=== PATIENT | male | born 1935 | race Caucasian/White ===

== ENCOUNTER 2021-06-21 11:33 | Inpatient (IN) | payer MEDICARE, OTHER ==
[~2021-06-21] VITALS: Ht 170.2 cm; Wt 90.7 kg
--- NOTE | 2021-06-21 19:40 | NUR ---
Patient arrived in the unit via gurney, accompanied by project controls specialist, awake and alert, quite disoriented to place, stuttered and delayed verbal responses. Routine admission care done. Plan of care initiated.
[2021-06-21 20:00] VITALS: BP 159/99
[2021-06-21] MEDS ORDERED: TAMS-3 PO (20:19)
[2021-06-21] MEDS ORDERED: VALS1TAB6 PO (20:19)
[2021-06-21] MEDS ORDERED: POTA20TA29 PO (20:19)
[2021-06-21] MEDS ORDERED: FURO40TA5 PO (20:19)
[2021-06-21] MEDS ORDERED: CLOP75TA15 PO (20:19)
[2021-06-21] MEDS ORDERED: DARO300T PO (20:19)
[2021-06-21] MEDS: REMEDY ESSENTIAL ZINC PASTE 113 GM TOP SCH (21:23)
[2021-06-21] MEDS: TAMSULOSIN HCL 0.4 MG CAP.SR.24H PO SCH (21:23)
[2021-06-22 04:00] VITALS: BP 158/77
--- NOTE | 2021-06-22 07:05 | NUR ---
Shift End Report: Vs stable. No complaint presented all night. Slept well. No significant event reported. Continue care as planned.
[2021-06-22 08:00] VITALS: BP 170/93
[2021-06-22] MEDS: VALSARTAN 160 MG TABLET PO SCH (08:48)
[2021-06-22] MEDS: FUROSEMIDE 40 MG TABLET PO SCH ×2 (08:49→16:13)
[2021-06-22] MEDS: CLOPIDOGREL 75 MG TABLET PO SCH (08:49)
[2021-06-22] MEDS: HYDROCHLOROTHIAZIDE 25 MG TABLET PO SCH (08:49)
[2021-06-22] MEDS: REMEDY ESSENTIAL ZINC PASTE 113 GM TOP SCH ×2 (08:50→20:39)
[2021-06-22] MEDS ORDERED: CIT AC PO SCH (09:00)
[2021-06-22] MEDS ORDERED: POTASSIUM BICARBONATE PO SCH (09:00)
[2021-06-22] MEDS ORDERED: DAROLUTAMIDE 600 MG PO SCH (09:00)
[2021-06-22] MEDS: POTASSIUM CHLORIDE 20 MEQ TAB.PRT.SR PO SCH ×2 (11:15→16:13)
--- NOTE | 2021-06-22 15:00 | NUR ---
Received Pt awake and alert, disoriented to place and time , stuttered and delayed verbal responses having trouble remembering certain things respiration even and unlabored at room air o2 sat 97 % no C/O of pain or acute distress noted Seen and examine by DR Negron with new order to D/C Rooney Cath and monitor for urinary retention offer the urinal Q2 . pt was UP in W/C with PT able tolerated well used the BR with PT will continue to monitor for comfort and safety.
[2021-06-22 15:15] VITALS: BP 159/99
[2021-06-22 15:33] VITALS: BP 159/99
[2021-06-22] MEDS: DAROLUTAMIDE 300 MG PO SCH ×2 (17:03→20:36)
[2021-06-22] MEDS ORDERED: FURO80TA3 PO (17:13)
[2021-06-22 17:17] VITALS: BP 159/87
[2021-06-22] MEDS ORDERED: CEFTRIAXONE 1 G in IV DEXTROSE 5% 50 ML IV SCH (18:00)
--- NOTE | 2021-06-22 18:26 | NUR ---
Pt Rooney cath was removed at 1700 will monitor closely for urinary retention ,he also noted with high blood pressure medicated as per MD ordered BP 159/87 P 117 SPO2 96% .Pt also noted with new order for Rocephin 1 GM Q 24 X5 days for UTI. Pt not having IV access at this time order obtain for a midline insertion
[2021-06-22 20:00] VITALS: BP 157/90
[2021-06-22] MEDS: TAMSULOSIN HCL 0.4 MG CAP.SR.24H PO SCH (20:34)
--- NOTE | 2021-06-22 22:30 | NUR ---
Mid liner Delvin here and Midline insertion done on CATHERINE G# 18, intact and patent. Patient tolerated procedure well. IV antibiotic initiated as ordered. Will monitor s/s of adverse reaction from the drugs.
[2021-06-22] MEDS: CEFTRIAXONE 1 G in IV DEXTROSE 5% 50 ML IV SCH (23:20)
[2021-06-23 04:00] VITALS: BP 142/86
[2021-06-23 08:04] VITALS: BP 142/88
[2021-06-23] MEDS: FUROSEMIDE 40 MG TABLET PO SCH ×2 (08:46→16:54)
[2021-06-23] MEDS: VALSARTAN 160 MG TABLET PO SCH (08:46)
[2021-06-23] MEDS: HYDROCHLOROTHIAZIDE 25 MG TABLET PO SCH (08:46)
[2021-06-23] MEDS: POTASSIUM CHLORIDE 20 MEQ TAB.PRT.SR PO SCH ×2 (08:46→16:54)
[2021-06-23] MEDS: CLOPIDOGREL 75 MG TABLET PO SCH (08:47)
[2021-06-23] MEDS: REMEDY ESSENTIAL ZINC PASTE 113 GM TOP SCH ×2 (08:47→20:32)
[2021-06-23] MEDS: DAROLUTAMIDE 300 MG PO SCH ×2 (08:47→20:25)
--- NOTE | 2021-06-23 13:35 | NUR ---
Received Pt AAO x4 confused at times, able to let needs known. Respirations even and unlabored sat 94% no C/O of pain. CATHERINE G# 18, intact and patent. Continue on IV antibiotic Rocephin 1 GM for UTI as ordered. S/P Rooney cath PT voiding well using urinal and diaper. Will monitor s/s of urinary retention continue to offer urinal Q2 hr .
[2021-06-23 16:19] VITALS: BP 102/51
[2021-06-23] MEDS: TAMSULOSIN HCL 0.4 MG CAP.SR.24H PO SCH (20:24)
[2021-06-23 20:40] VITALS: BP 128/75
[2021-06-23] MEDS: CEFTRIAXONE 1 G in IV DEXTROSE 5% 50 ML IV SCH (22:08)
[2021-06-24 04:25] VITALS: BP 129/72
--- NOTE | 2021-06-24 06:45 | NUR ---
Pt slept intermittently throughout the night. No acute changes noted. All needs attended. Will endorse to next shift.
[2021-06-24 08:00] VITALS: BP 132/88
[2021-06-24] MEDS: VALSARTAN 160 MG TABLET PO SCH (08:09)
[2021-06-24] MEDS: ENSURE ENLIVE (VAN) 240 ML LIQUID PO SCH (08:10)
[2021-06-24] MEDS: POTASSIUM CHLORIDE 20 MEQ TAB.PRT.SR PO SCH ×2 (08:12→16:53)
[2021-06-24] MEDS: CLOPIDOGREL 75 MG TABLET PO SCH (08:12)
[2021-06-24] MEDS: FUROSEMIDE 40 MG TABLET PO SCH ×2 (08:12→16:53)
[2021-06-24] MEDS: HYDROCHLOROTHIAZIDE 25 MG TABLET PO SCH (08:12)
[2021-06-24] MEDS: REMEDY ESSENTIAL ZINC PASTE 113 GM TOP SCH ×2 (08:13→20:49)
[2021-06-24] MEDS: DAROLUTAMIDE 300 MG PO SCH ×2 (08:13→20:48)
--- NOTE | 2021-06-24 09:52 | NUR ---
INDIVIDUALIZED PLAN OF CARE
--- NOTE | 2021-06-24 13:39 | NUR ---
Pt remain AAO x4 with period of confusion at times, able to let needs known. Respirations even and unlabored sat 96% no C/O of pain. CATHERINE G# 18, intact and patent. Continue on IV antibiotic therapy with Rocephin 1 GM for UTI as ordered. S/P Rooney cath PT voiding well using urinal and diaper. Will monitor s/s of urinary retention continue to use the urinal as needed it
[2021-06-24 15:07] VITALS: BP 119/67
[2021-06-24 20:25] VITALS: BP 117/59
[2021-06-24] MEDS: TAMSULOSIN HCL 0.4 MG CAP.SR.24H PO SCH (20:48)
[2021-06-24] MEDS: CEFTRIAXONE 1 G in IV DEXTROSE 5% 50 ML IV SCH (21:25)
[2021-06-25 04:51] VITALS: BP 112/65
[2021-06-25 08:24] VITALS: BP 110/65
[2021-06-25] MEDS: POTASSIUM CHLORIDE 20 MEQ TAB.PRT.SR PO SCH ×2 (08:59→17:22)
[2021-06-25] MEDS: FUROSEMIDE 40 MG TABLET PO SCH ×2 (09:00→17:22)
[2021-06-25] MEDS: CLOPIDOGREL 75 MG TABLET PO SCH (09:00)
[2021-06-25] MEDS: VALSARTAN 160 MG TABLET PO SCH (09:00)
[2021-06-25] MEDS: HYDROCHLOROTHIAZIDE 25 MG TABLET PO SCH (09:00)
[2021-06-25] MEDS: ENSURE ENLIVE (VAN) 240 ML LIQUID PO SCH (09:01)
[2021-06-25] MEDS: DAROLUTAMIDE 300 MG PO SCH ×2 (09:02→20:53)
[2021-06-25] MEDS: REMEDY ESSENTIAL ZINC PASTE 113 GM TOP SCH ×2 (09:04→20:54)
[2021-06-25 12:09] VITALS: BP 120/61
[2021-06-25 15:51] VITALS: BP 127/84
--- NOTE | 2021-06-25 19:00 | NUR ---
Received patient on bed, watching TV, no shortness of breath, no complaint of pain or discomfort.
[2021-06-25 20:27] VITALS: BP 124/68
[2021-06-25] MEDS: TAMSULOSIN HCL 0.4 MG CAP.SR.24H PO SCH (20:53)
[2021-06-25] MEDS: CEFTRIAXONE 1 G in IV DEXTROSE 5% 50 ML IV SCH (21:07)
[2021-06-26 04:43] VITALS: BP 124/65
--- NOTE | 2021-06-26 06:23 | NUR ---
Patient slept well, used urinal for voiding. Denies pain or discomfort. Assisted to reposition for comfort. Patient in fair condition.
[2021-06-26 07:30] VITALS: BP 127/77
[2021-06-26] MEDS: POTASSIUM CHLORIDE 20 MEQ TAB.PRT.SR PO SCH ×2 (08:19→16:39)
[2021-06-26] MEDS: VALSARTAN 160 MG TABLET PO SCH (08:20)
[2021-06-26] MEDS: HYDROCHLOROTHIAZIDE 25 MG TABLET PO SCH (08:20)
[2021-06-26] MEDS: DAROLUTAMIDE 300 MG PO SCH ×2 (08:20→20:21)
[2021-06-26] MEDS: CLOPIDOGREL 75 MG TABLET PO SCH (08:20)
[2021-06-26] MEDS: FUROSEMIDE 40 MG TABLET PO SCH ×2 (08:20→16:39)
[2021-06-26] MEDS: ENSURE ENLIVE (VAN) 240 ML LIQUID PO SCH (08:21)
[2021-06-26] MEDS: REMEDY ESSENTIAL ZINC PASTE 113 GM TOP SCH ×2 (08:22→20:23)
[2021-06-26 16:00] VITALS: BP 119/53
--- NOTE | 2021-06-26 16:39 | NUR ---
DNR/DNI was ordered as what the patient have at [facility]. Confirmed with the patient and stated he does not want to be revived in the event his heart stops. Trish (caregiver) was at the bedside stated that's what the patient request but confirm with the family as well. Left a message to ALBERTINA Hussein (daughter) to confirm, no reply from her end at this time. will continue to follow up for verification.
--- NOTE | 2021-06-26 18:35 | NUR ---
Patient remained stable during the shift. Not in any acute distress. Able to void, needs standby assist, walks with walker to the bathroom. safety measures maintained. call light within reach. frequent visual checks done. will endorse to the next shift for continuity of care.
--- NOTE | 2021-06-26 19:00 | NUR ---
Received patient on bed, alert, no shortness of breath, denies pain and discomfort. Safety precautions and use of call light reinforced.
[2021-06-26 20:18] VITALS: BP 123/73
[2021-06-26] MEDS: TAMSULOSIN HCL 0.4 MG CAP.SR.24H PO SCH (20:21)
[2021-06-27 04:18] VITALS: BP 106/53
--- NOTE | 2021-06-27 05:56 | NUR ---
Patient slept well, used the urinal to void once. No complaint of pain. Able to mobilize on bed on his own. For continuity of care.
[2021-06-27 07:30] VITALS: BP 135/68
[2021-06-27] MEDS: HYDROCHLOROTHIAZIDE 25 MG TABLET PO SCH (08:17)
[2021-06-27] MEDS: DAROLUTAMIDE 300 MG PO SCH ×2 (08:18→20:24)
[2021-06-27] MEDS: VALSARTAN 160 MG TABLET PO SCH (08:18)
[2021-06-27] MEDS: ENSURE ENLIVE (VAN) 240 ML LIQUID PO SCH (08:18)
[2021-06-27] MEDS: FUROSEMIDE 40 MG TABLET PO SCH ×2 (08:18→16:17)
[2021-06-27] MEDS: CLOPIDOGREL 75 MG TABLET PO SCH (08:18)
[2021-06-27] MEDS: POTASSIUM CHLORIDE 20 MEQ TAB.PRT.SR PO SCH ×2 (08:18→16:17)
[2021-06-27] MEDS: REMEDY ESSENTIAL ZINC PASTE 113 GM TOP SCH ×2 (08:20→20:25)
--- NOTE | 2021-06-27 13:07 | NUR ---
Jovita (daughter) called to confirm patient is okay for CPR but on DNI status.
[2021-06-27 16:00] VITALS: BP 101/53
--- NOTE | 2021-06-27 18:23 | NUR ---
Patient remained stable during the shift. Not in any acute distress. No difficulty urinating during the shift. safety measures maintained. call light within reach. frequent visual checks done. will endorse to the next shift for continuity of care.
[2021-06-27] MEDS: TAMSULOSIN HCL 0.4 MG CAP.SR.24H PO SCH (20:25)
[2021-06-27 20:40] VITALS: BP 125/77
[2021-06-28] VITALS (7 sets, daily range): BP systolic 101–144; BP diastolic 59–78
--- NOTE | 2021-06-28 03:37 | NUR ---
AAOx4 No acute distress noted. VSS. All needs attended and met. Uses urinal. Voiding without difficulty. Kept comfortable. Fall precautions maintained. Call wahl within reach. All due meds given. Denies any pain nor any discomfort. Will monitor patient.
[2021-06-28 06:42] LABS: HEMATOCRIT 36.8 % (36.7-47.1); MEAN CORPUSCULAR HEMOGLOBIN 31.5 uug (23.8-33.4); MEAN CORPUSCULAR VOLUME 91.4 fL (73.0-96.2); PLATELET COUNT (AUTO) 386 K/uL (152-348)
[2021-06-28 07:00] LABS: ALANINE AMINOTRANSFERASE 34 U/L (16-63); ALKALINE PHOSPHATASE 417 U/L (50-136); ASPARTATE AMINOTRANSFERASE 18 U/L (15-37); BILIRUBIN,TOTAL 0.5 mg/dL (0.2-1.0); CARBON DIOXIDE 26 mmol/L (21-32); CHLORIDE 94 mmol/L (98-107); CHOLESTEROL 174 mg/dL (<200); CREATININE 1.9 mg/dL (0.6-1.3); GLUCOSE 106 mg/dL (74-106); HDL CHOLESTEROL 35 mg/dL (40-60); MAGNESIUM 2.3 mg/dL (1.8-2.4); PHOSPHOROUS 5.2 mg/dL (2.5-4.9); POTASSIUM 3.7 mmol/L (3.5-5.1); TOTAL PROTEIN, SERUM 6.6 g/dL (6.4-8.2); TRIGLYCERIDES 183 MG/DL (30-150); UREA NITROGEN, BLOOD 70 mg/dL (7-18)
[2021-06-28 07:43] LABS: THYROID STIMULATING HORMONE 2.098 mIU/mL (0.358-3.740)
[2021-06-28] MEDS: POTASSIUM CHLORIDE 20 MEQ TAB.PRT.SR PO SCH ×2 (08:11→17:21)
[2021-06-28] MEDS: VALSARTAN 160 MG TABLET PO SCH (08:11)
[2021-06-28] MEDS: DAROLUTAMIDE 300 MG PO SCH ×2 (08:11→20:29)
[2021-06-28] MEDS: HYDROCHLOROTHIAZIDE 25 MG TABLET PO SCH (08:11)
[2021-06-28] MEDS: FUROSEMIDE 40 MG TABLET PO SCH ×2 (08:11→17:21)
[2021-06-28] MEDS: CLOPIDOGREL 75 MG TABLET PO SCH (08:11)
[2021-06-28] MEDS: ENSURE ENLIVE (VAN) 240 ML LIQUID PO SCH (08:12)
[2021-06-28] MEDS: REMEDY ESSENTIAL ZINC PASTE 113 GM TOP SCH ×2 (08:12→20:30)
--- NOTE | 2021-06-28 09:09 | NUR ---
INTERDISCIPLINARY TEAM CONFERENCE
[2021-06-28] MEDS: IV NS 1000 ML 1,000 ML IV PRN ×2 (10:20→23:46)
[2021-06-28] MEDS ORDERED: ZOLPIDEM 5 MG TABLET PO PRN (17:45)
--- NOTE | 2021-06-28 18:14 | NUR ---
The patient remained stable, denies pain. IV fluids started as ordered, infusing well. Midlines to the CATHERINE intact. Assisted with all his needs. Kept call light within reach. Tolerated rehab this am. Frequent visual checks done. no distress identified during the shift. All due meds given. all needs attended. safety measures maintained. will endorse to the next shift for continuity of care.
[2021-06-28] MEDS: TAMSULOSIN HCL 0.4 MG CAP.SR.24H PO SCH (20:29)
[2021-06-29] MEDS ORDERED: ACETAMINOPHEN 325 MG TABLET PO PRN (02:15)
--- NOTE | 2021-06-29 02:19 | NUR ---
Medicated with Tylenol 650 mg for complaint oif left hip pain as ordered and needed. Will monitor.
[2021-06-29 04:00] VITALS: BP 106/55
[2021-06-29 07:50] VITALS: BP 130/76
[2021-06-29] MEDS: FUROSEMIDE 40 MG TABLET PO SCH ×2 (08:58→17:46)
[2021-06-29] MEDS: CLOPIDOGREL 75 MG TABLET PO SCH (08:58)
[2021-06-29] MEDS: VALSARTAN 160 MG TABLET PO SCH (08:58)
[2021-06-29] MEDS: HYDROCHLOROTHIAZIDE 25 MG TABLET PO SCH (08:58)
[2021-06-29] MEDS: POTASSIUM CHLORIDE 20 MEQ TAB.PRT.SR PO SCH ×2 (08:58→17:46)
[2021-06-29] MEDS: DAROLUTAMIDE 300 MG PO SCH ×2 (08:59→20:31)
[2021-06-29] MEDS: REMEDY ESSENTIAL ZINC PASTE 113 GM TOP SCH ×2 (08:59→20:33)
[2021-06-29] MEDS: ENSURE ENLIVE (VAN) 240 ML LIQUID PO SCH (08:59)
[2021-06-29] MEDS: IV NS 1000 ML 1,000 ML IV PRN (17:52)
[2021-06-29 20:16] VITALS: BP 134/75
[2021-06-29] MEDS: TAMSULOSIN HCL 0.4 MG CAP.SR.24H PO SCH (20:31)
[2021-06-30 04:07] VITALS: BP 123/59
--- NOTE | 2021-06-30 06:56 | NUR ---
Shift End Report: Continue IVF as ordered. No s/s of infiltration noted on Mid line site. Slept well. No complaint presented all night. All needs attended and met. Continue current rehab plan of care.
[2021-06-30 07:45] VITALS: BP 118/65
[2021-06-30] MEDS: HYDROCHLOROTHIAZIDE 25 MG TABLET PO SCH (09:42)
[2021-06-30] MEDS: POTASSIUM CHLORIDE 20 MEQ TAB.PRT.SR PO SCH ×2 (09:43→17:27)
[2021-06-30] MEDS: ENSURE ENLIVE (VAN) 240 ML LIQUID PO SCH (09:43)
[2021-06-30] MEDS: FUROSEMIDE 40 MG TABLET PO SCH ×2 (09:43→17:27)
[2021-06-30] MEDS: CLOPIDOGREL 75 MG TABLET PO SCH (09:43)
[2021-06-30] MEDS: DAROLUTAMIDE 300 MG PO SCH ×2 (09:43→20:21)
[2021-06-30] MEDS: VALSARTAN 160 MG TABLET PO SCH (09:43)
[2021-06-30] MEDS: REMEDY ESSENTIAL ZINC PASTE 113 GM TOP SCH ×2 (09:44→20:24)
[2021-06-30 16:13] VITALS: BP 124/67
[2021-06-30 20:21] VITALS: BP 146/83
[2021-06-30] MEDS: TAMSULOSIN HCL 0.4 MG CAP.SR.24H PO SCH (20:21)
--- NOTE | 2021-07-01 03:53 | NUR ---
awake alert and oriented x4 No acute distress noted. VSS. All needs attended. IVF's infusing well. Voiding well in the urinal. Fall precautions maintained. Call wahl within reach. Denies any pain nor any discomfort. Will monitor patient.
[2021-07-01 04:48] VITALS: BP 140/75
[2021-07-01 08:00] VITALS: BP 133/78
[2021-07-01] MEDS: VALSARTAN 160 MG TABLET PO SCH (08:31)
[2021-07-01] MEDS: ENSURE ENLIVE (VAN) 240 ML LIQUID PO SCH (08:32)
[2021-07-01] MEDS: CLOPIDOGREL 75 MG TABLET PO SCH (08:33)
[2021-07-01] MEDS: HYDROCHLOROTHIAZIDE 25 MG TABLET PO SCH (08:33)
[2021-07-01] MEDS: DAROLUTAMIDE 300 MG PO SCH ×2 (08:33→20:20)
[2021-07-01] MEDS: FUROSEMIDE 40 MG TABLET PO SCH ×2 (08:33→17:09)
[2021-07-01] MEDS: POTASSIUM CHLORIDE 20 MEQ TAB.PRT.SR PO SCH ×2 (08:33→17:08)
[2021-07-01] MEDS: REMEDY ESSENTIAL ZINC PASTE 113 GM TOP SCH ×2 (08:38→20:20)
[2021-07-01 16:47] VITALS: BP 128/53
--- NOTE | 2021-07-01 18:32 | NUR ---
Pt remain awake alert and oriented x4 No acute distress noted. All needs attended. IVF's infusing well. Voiding well in the urinal. Fall precautions maintained. Call wahl within reach. Denies any pain nor any discomfort. Will monitor patient.
[2021-07-01 20:15] VITALS: BP 128/78
[2021-07-01] MEDS: TAMSULOSIN HCL 0.4 MG CAP.SR.24H PO SCH (20:20)
--- NOTE | 2021-07-01 21:23 | NUR ---
Awake alert and oriented x4 Needs attended. VSS. Remained stable this shift. No acute distress noted. Tolerated po meds well. No complaints presented during shift. Voiding freely without difficulty. PM care done. Kept comfortable. Fall precautions maintained. Call wahl within reach. Bed alarm on. Will monitor patient. Siderails up for safety.
[2021-07-02 04:33] VITALS: BP 103/67
[2021-07-02 08:00] VITALS: BP 118/58
[2021-07-02] MEDS: DAROLUTAMIDE 300 MG PO SCH ×2 (08:03→21:10)
[2021-07-02] MEDS: POTASSIUM CHLORIDE 20 MEQ TAB.PRT.SR PO SCH ×2 (08:03→16:02)
[2021-07-02] MEDS: ENSURE ENLIVE (VAN) 240 ML LIQUID PO SCH (08:03)
[2021-07-02] MEDS: FUROSEMIDE 40 MG TABLET PO SCH ×2 (08:03→16:02)
[2021-07-02] MEDS: HYDROCHLOROTHIAZIDE 25 MG TABLET PO SCH (08:03)
[2021-07-02] MEDS: VALSARTAN 160 MG TABLET PO SCH (08:03)
[2021-07-02] MEDS: CLOPIDOGREL 75 MG TABLET PO SCH (08:03)
[2021-07-02] MEDS: REMEDY ESSENTIAL ZINC PASTE 113 GM TOP SCH ×2 (08:07→21:11)
[2021-07-02 16:46] VITALS: BP 115/61
--- NOTE | 2021-07-02 19:00 | NUR ---
Received patient on bed, alert, no shortness of breath noted, no pain and discomfort noted. Safety precautions provided, call light within reach, bed alarm on.
[2021-07-02 20:13] VITALS: BP 106/53
[2021-07-02] MEDS: TAMSULOSIN HCL 0.4 MG CAP.SR.24H PO SCH (21:10)
[2021-07-03 04:36] VITALS: BP 110/63
--- NOTE | 2021-07-03 05:17 | NUR ---
Patient slept well, no complaint of pain, no significant event noted. Patient in fair condition.
[2021-07-03 06:55] LABS: HEMATOCRIT 35.5 % (36.7-47.1); MEAN CORPUSCULAR HEMOGLOBIN 31.4 uug (23.8-33.4); MEAN CORPUSCULAR VOLUME 91.2 fL (73.0-96.2); PLATELET COUNT (AUTO) 296 K/uL (152-348)
[2021-07-03 07:19] LABS: CREATININE 1.3 mg/dL (0.6-1.3); PHOSPHOROUS 3.6 mg/dL (2.5-4.9); POTASSIUM 2.9 mmol/L (3.5-5.1)
[2021-07-03 07:31] VITALS: BP 103/55
[2021-07-03] MEDS: POTASSIUM CHLORIDE 20 MEQ TAB.PRT.SR PO SCH ×2 (08:08→16:11)
[2021-07-03] MEDS: HYDROCHLOROTHIAZIDE 25 MG TABLET PO SCH (08:08)
[2021-07-03] MEDS: VALSARTAN 160 MG TABLET PO SCH (08:08)
[2021-07-03] MEDS: DAROLUTAMIDE 300 MG PO SCH ×2 (08:08→20:26)
[2021-07-03] MEDS: ENSURE ENLIVE (VAN) 240 ML LIQUID PO SCH (08:08)
[2021-07-03] MEDS: CLOPIDOGREL 75 MG TABLET PO SCH (08:08)
[2021-07-03] MEDS: FUROSEMIDE 40 MG TABLET PO SCH ×2 (08:09→16:11)
[2021-07-03] MEDS: REMEDY ESSENTIAL ZINC PASTE 113 GM TOP SCH ×2 (08:09→20:22)
[2021-07-03] MEDS: POTASSIUM CHLORIDE 10 MEQ TAB.PRT.SR PO SCH ×2 (10:44→13:41)
[2021-07-03] MEDS ORDERED: POTASSIUM CHLORIDE 20 MEQ TAB.PRT.SR PO SCH (11:00)
[2021-07-03 16:00] VITALS: BP 117/60
[2021-07-03 20:12] VITALS: BP 109/65
[2021-07-03] MEDS: TAMSULOSIN HCL 0.4 MG CAP.SR.24H PO SCH (20:22)
[2021-07-04 04:15] VITALS: BP 122/69
[2021-07-04 07:57] VITALS: BP 130/70
[2021-07-04] MEDS: VALSARTAN 160 MG TABLET PO SCH (08:16)
[2021-07-04] MEDS: FUROSEMIDE 40 MG TABLET PO SCH ×2 (08:17→17:22)
[2021-07-04] MEDS: HYDROCHLOROTHIAZIDE 25 MG TABLET PO SCH (08:17)
[2021-07-04] MEDS: POTASSIUM CHLORIDE 20 MEQ TAB.PRT.SR PO SCH ×2 (08:17→17:22)
[2021-07-04] MEDS: CLOPIDOGREL 75 MG TABLET PO SCH (08:18)
[2021-07-04] MEDS: DAROLUTAMIDE 300 MG PO SCH ×2 (08:18→20:54)
[2021-07-04] MEDS: REMEDY ESSENTIAL ZINC PASTE 113 GM TOP SCH ×2 (08:19→21:00)
[2021-07-04] MEDS: ENSURE ENLIVE (VAN) 240 ML LIQUID PO SCH (08:21)
[2021-07-04 15:37] VITALS: BP 124/73
--- NOTE | 2021-07-04 19:55 | NUR ---
Received pt lying in bed. AOX4. Able to make needs known. No discomfort, pain or distress noted at this time. Call lights within reach. Safety measures initiated.
[2021-07-04 20:46] VITALS: BP 112/58
[2021-07-04] MEDS: TAMSULOSIN HCL 0.4 MG CAP.SR.24H PO SCH (20:54)
[2021-07-05 04:38] VITALS: BP 127/66
--- NOTE | 2021-07-05 05:23 | NUR ---
Pt slept well throughout the night. Able to make needs known. No complaints overnight. CATHERINE midline, patent and saline flushed. Vital Signs stable through the night. Afebrile. Call lights within reach. Safety measures maintained. Will endorse to am shift.
[2021-07-05 08:00] VITALS: BP 121/67
[2021-07-05 08:31] LABS: CREATININE 1.3 mg/dL (0.6-1.3)
[2021-07-05] MEDS: CLOPIDOGREL 75 MG TABLET PO SCH (09:27)
[2021-07-05] MEDS: HYDROCHLOROTHIAZIDE 25 MG TABLET PO SCH (09:27)
[2021-07-05] MEDS: POTASSIUM CHLORIDE 20 MEQ TAB.PRT.SR PO SCH ×2 (09:27→16:55)
[2021-07-05] MEDS: DAROLUTAMIDE 300 MG PO SCH ×2 (09:28→20:45)
[2021-07-05] MEDS: FUROSEMIDE 40 MG TABLET PO SCH ×2 (09:28→16:55)
[2021-07-05] MEDS: VALSARTAN 160 MG TABLET PO SCH (09:28)
[2021-07-05] MEDS: REMEDY ESSENTIAL ZINC PASTE 113 GM TOP SCH ×2 (09:29→20:50)
[2021-07-05] MEDS ORDERED: POTASSIUM CHLORIDE 20 MEQ TAB.PRT.SR PO ONE ×2 (10:00→13:00)
--- NOTE | 2021-07-05 10:38 | NUR ---
Wound/skin management visit today. Recommendations to remove diaper from pt, Pt has been cleaned and medication cream ordered for pts groin area rash. Comfort measures provided, call light within reach. Will continue to monitor.
--- NOTE | 2021-07-05 12:10 | NUR ---
Pt was participating with physical therapy, per physical therapy when the patient stood up from toilet, he stated that he cannot walk. He was then seated back down and became verbally nonresponsive. Patient's eyes were open and following. Assessed his strength. Pt was able to squeeze my hands with a bank runner. Face is symmetrical. Pt became responsive. He stated his name correctly and said he feels tired. Pt was able to push and resisit with his legs. Pt able to push himself up off wheelchair to get into bed using a front wheel walker. Orthostatics checked. sitting 90/50 HR 104; laying down supine 95/57 HR 94; back to sitting position 80/ 47 HR 105. Did not take BP standing due to pt feeling weak. was notified of event. Fluids given, will closely monitor pt and reassess.
[2021-07-05] MEDS: CLOTRIMAZOLE/BETAMET DIPROP CREAM 15 GM TUBE TOP SCH ×2 (12:35→20:51)
--- NOTE | 2021-07-05 14:00 | NUR ---
Patient's vitals improved after fluids and rest. sitting blood pressure 120/73 HR 105, Standing BP 111/ 85 HR 107. Pt reports feeling better than before. Able to stand from edge of the bed with front wheel walker and take few steps. Will continue to monitor and encourage fluid intake.
--- NOTE | 2021-07-05 14:06 | NUR ---
notified of improvement of vitals.
[2021-07-05 14:07] VITALS: BP 120/73
--- NOTE | 2021-07-05 15:10 | NUR ---
INTERDISCIPLINARY TEAM CONFERENCE
[2021-07-05 16:34] VITALS: BP 129/70
[2021-07-05 20:37] VITALS: BP 106/56
[2021-07-05 20:39] VITALS: BP 103/56
[2021-07-05] MEDS: TAMSULOSIN HCL 0.4 MG CAP.SR.24H PO SCH (20:45)
--- NOTE | 2021-07-06 04:30 | NUR ---
AAOx4 Admitted for metabolic encepalopathy. All needs attended. VSS. No acute distress noted. Voiding well in the urinal. No BM noted this shift. Kept comfortable. Will monitor patient.
[2021-07-06 04:42] VITALS: BP 105/65
[2021-07-06 07:09] LABS: CARBON DIOXIDE 28 mmol/L (21-32); CHLORIDE 92 mmol/L (98-107); CREATININE 1.4 mg/dL (0.6-1.3); GLUCOSE 108 mg/dL (74-106); POTASSIUM 3.4 mmol/L (3.5-5.1); UREA NITROGEN, BLOOD 43 mg/dL (7-18)
[2021-07-06 07:19] LABS: HEMATOCRIT 36.5 % (36.7-47.1); MEAN CORPUSCULAR HEMOGLOBIN 31.5 uug (23.8-33.4); MEAN CORPUSCULAR VOLUME 92.1 fL (73.0-96.2); PLATELET COUNT (AUTO) 273 K/uL (152-348)
[2021-07-06 07:42] VITALS: BP 112/70
[2021-07-06] MEDS: HYDROCHLOROTHIAZIDE 25 MG TABLET PO SCH (08:39)
[2021-07-06] MEDS: VALSARTAN 160 MG TABLET PO SCH (08:39)
[2021-07-06] MEDS: POTASSIUM CHLORIDE 20 MEQ TAB.PRT.SR PO SCH ×2 (08:39→17:10)
[2021-07-06] MEDS: CLOPIDOGREL 75 MG TABLET PO SCH (08:40)
[2021-07-06] MEDS: DAROLUTAMIDE 300 MG PO SCH ×2 (08:40→20:37)
[2021-07-06] MEDS: REMEDY ESSENTIAL ZINC PASTE 113 GM TOP SCH ×2 (08:41→20:37)
[2021-07-06] MEDS: CLOTRIMAZOLE/BETAMET DIPROP CREAM 15 GM TUBE TOP SCH ×2 (08:45→20:37)
[2021-07-06] MEDS ORDERED: FUROSEMIDE 40 MG TABLET PO SCH (09:00)
[2021-07-06] MEDS ORDERED: POTASSIUM CHLORIDE 20 MEQ TAB.PRT.SR PO ONE ×3 (10:00→12:45)
[2021-07-06 10:22] LABS: NEUTROPHILS % (MANUAL) 0 % (42-75)
[2021-07-06 10:45] VITALS: BP_SYST 125; BP_SYST 127; BP_SYST 77; BP_DIAS 53; BP_DIAS 68; BP_DIAS 72
--- NOTE | 2021-07-06 11:30 | NUR ---
Received Pt AAO X3-4 able to let his needs known.respirations even and unlabored no SOB at room air.Meds given as per ordered .Up with PT with FWW while in the BR pt C/O of feeling dizzy and weak. B/P check 87/42 Pt assisted back to bed .DR Dominguez was notified Orthostatics BP checked. sitting 127/72 HR 96; laying down supine 125/68 HR 94; BP standing B/P=77/53 P=112. was notified of event. With new order for NS 500 ml bolus. Fluids given, will closely monitor pt ,and reassess.
[2021-07-06] MEDS ORDERED: IV NORMAL SALINE 500 ML IV ONE (12:00)
[2021-07-06 13:50] VITALS: BP_SYST 103; BP_SYST 107; BP_SYST 125; BP_DIAS 65; BP_DIAS 67; BP_DIAS 83
--- NOTE | 2021-07-06 13:55 | NUR ---
Orthostatics BP re assesses, checked after NS 500ml hydration given . B/P sitting 107/65 HR 106; laying down supine 125/67 HR 105; BP standing B/P=103/83 P=114. was notified . Pt was schedule for discharge home today , Dr Dominguez order to hold D/C home for today. will closely monitor for comfort and safety
[2021-07-06 14:57] LABS: *BILIRUBIN,URIN NEGATIVE (NEGATIVE); *BLOOD, URINE NEGATIVE (NEGATIVE); *CLARITY,URINE CLEAR (CLEAR); *COLOR,URINE YELLOW (YELLOW); *KETONES,URINE NEGATIVE (NEGATIVE); *UROBILINOGEN,URINE 0.2 E.U./dl (NORMAL); LEUKOCYTE ESTERASE ,URINE 1+ (NEGATIVE); NITRITE, URINE NEGATIVE (NEGATIVE); PH,URINE 6.5 (5.0-8.0); UGLUCOSE NEGATIVE (NEGATIVE)
[2021-07-06 15:12] VITALS: BP 120/76
[2021-07-06 15:19] LABS: RBC,URINE 0-3 /HPF (0-3)
[2021-07-06 15:20] LABS: SQUAMOUS EPITHELIAL CELL,UR FEW /HPF (NONE SEEN); YEAST,URINE FEW /HPF (NONE SEEN)
[2021-07-06 15:21] LABS: BACTERIA,URINE MODERATE /HPF (NONE SEEN)
[2021-07-06 20:00] VITALS: BP 121/63
[2021-07-06] MEDS: TAMSULOSIN HCL 0.4 MG CAP.SR.24H PO SCH (20:37)
[2021-07-07 04:13] VITALS: BP 113/65
[2021-07-07 06:38] LABS: CREATININE 1.2 mg/dL (0.6-1.3); POTASSIUM 3.7 mmol/L (3.5-5.1)
[2021-07-07 07:43] VITALS: BP 139/63
[2021-07-07] MEDS: VALSARTAN 160 MG TABLET PO SCH (09:00)
[2021-07-07] MEDS: HYDROCHLOROTHIAZIDE 25 MG TABLET PO SCH (09:00)
[2021-07-07] MEDS: DAROLUTAMIDE 300 MG PO SCH (09:43)
[2021-07-07] MEDS: CLOPIDOGREL 75 MG TABLET PO SCH (09:43)
[2021-07-07] MEDS: POTASSIUM CHLORIDE 20 MEQ TAB.PRT.SR PO SCH (09:43)
[2021-07-07] MEDS: CLOTRIMAZOLE/BETAMET DIPROP CREAM 15 GM TUBE TOP SCH (09:44)
[2021-07-07] MEDS: REMEDY ESSENTIAL ZINC PASTE 113 GM TOP SCH (09:44)
--- NOTE | 2021-07-07 11:30 | NUR ---
Plan is to discharge home today, ambulance belt picker at 1300 set up by caser up. no report of weakness or light headedness this am. Will continue to monitor.
[2021-07-07 14:35] VITALS: BP 136/91
--- NOTE | 2021-07-07 14:37 | NUR ---
Pt has been discharged home. Transportation via [facility] ambulance. All personal belongings at hand (some taken home by Caregiver previous day). Discharge education and materials given to pt. Vitals 136/91 HR 109. 97% saturation on room air. No signs of acute distress. Pt has been provided home health and follow up visit information. IV and ID removed.
[2021-07-07] MEDS ORDERED: CLOP75TA15 PO ×2 (19:12→19:17)
[2021-07-07] MEDS ORDERED: VALS1TAB6 PO ×2 (19:12→19:17)
[2021-07-07] MEDS ORDERED: POTA20TA29 PO (19:12)
[2021-07-07] MEDS ORDERED: TAMS-3 PO ×2 (19:12→19:17)
[2021-07-07] MEDS ORDERED: DARO300T PO ×2 (19:12→19:17)
== END 2021-07-07 14:45 | disposition home or self-care (01) | DRG 871 ==
PROVIDERS: ADMIT Physical Medicine & Rehabilitation Pain Medicine; ATTEND Physical Medicine & Rehabilitation Pain Medicine
PROC: 05H933Z Insertion of Infusion Device into Right Brachial Vein, Percutaneous Approach (ICD-10-PCS; principal; 2021-06-22)
DX: A41.9 Sepsis, unspecified organism (principal); G93.41 Metabolic encephalopathy; N17.0 Acute kidney failure with tubular necrosis; I21.4 Non-ST elevation (NSTEMI) myocardial infarction; N39.0 Urinary tract infection, site not specified; D68.59 Other primary thrombophilia; F05 Delirium due to known physiological condition; B96.89 Other specified bacterial agents as the cause of diseases classified elsewhere; Z86.16 Personal history of COVID-19; Z86.73 Personal history of transient ischemic attack (TIA), and cerebral infarction without residual deficits; I50.9 Heart failure, unspecified; Z85.46 Personal history of malignant neoplasm of prostate; I11.0 Hypertensive heart disease with heart failure; I25.10 Atherosclerotic heart disease of native coronary artery without angina pectoris; I25.2 Old myocardial infarction; I73.9 Peripheral vascular disease, unspecified; N40.0 Benign prostatic hyperplasia without lower urinary tract symptoms; Z90.79 Acquired absence of other genital organ(s); E66.9 Obesity, unspecified; Z68.31 Body mass index [BMI] 31.0-31.9, adult; E78.5 Hyperlipidemia, unspecified; E88.09 Other disorders of plasma-protein metabolism, not elsewhere classified; I95.1 Orthostatic hypotension; Z79.899 Other long term (current) drug therapy; R53.1 Weakness
CPT/HCPCS: 36415; 70030-TC; 83735; 84100; 84443; 85025; 87077; 87086; 97161; 97535-GO-CO; A4663; J0696; J7030; J7040; J7050; J7060